=== PATIENT | female | born 1945 | race Caucasian/White ===

== ENCOUNTER 2021-04-19 15:01 | Inpatient (IN) ==
[2021-04-19] MEDS ORDERED: Ondansetron 4 MG/2 ML VIAL IVP PRN (23:01)
[2021-04-19] MEDS ORDERED: Naloxone 0.4 MG/ML INJ IVP PRN (23:01)
[2021-04-19] MEDS ORDERED: Ipratropium/Albuterol Neb 3 ML IH PRN (23:04)
[2021-04-20] MEDS ORDERED: Isovue-370 500 ML BOTTLE IVP ONE ×2 (00:08→14:00)
[2021-04-20] MEDS ORDERED: Perflutren Lipid Microsphere 1.3 ML in 0.9 % Sodium Chloride 8.7 ML IVP PRN (00:12)
[2021-04-20] MEDS: Nystatin SUSP 5 ML UD.LIQ PO SCH ×6 (01:50→20:34)
[2021-04-20 02:25] LABS: Adenovirus Not Detected (Not Detect); Bordetella Pertussis Not Detected (Not Detect); Chlamydophila pneumoniae Not Detected (Not Detect); Coronavirus 229E Not Detected (Not Detect); Coronavirus HKU1 Not Detected (Not Detect); Coronavirus NL63 Not Detected (Not Detect); Coronavirus OC43 Not Detected (Not Detect); Human Metapneumovirus Not Detected (Not Detect); Human Rhinovirus/Enterovirus Not Detected (Not Detect); Influenza A Subtype 2009 H1 Not Detected (Not Detect); Influenza B Not Detected (Not Detect); Mycoplasma pneumoniae Not Detected (Not Detect); Parainfluenza Virus 1 Not Detected (Not Detect); Parainfluenza Virus 2 Not Detected (Not Detect); Parainfluenza Virus 3 Not Detected (Not Detect); Parainfluenza Virus 4 Not Detected (Not Detect); Respiratory Syncytial Virus Not Detected (Not Detect); SARS-CoV-2 Not Detected (Not Detect)
[2021-04-20 03:20] LABS: Iron 19 mcg/dL (50-170)
[2021-04-20 03:21] LABS: Calcium 8.5 mg/dL (8.6-10.3); Magnesium 1.9 mg/dL (1.6-2.6); Potassium 4.8 mEq/L (3.5-5.1)
[2021-04-20 03:35] LABS: Thyroid Stimulating Hormone 1.41 mcIU/mL (0.340-5.600)
[2021-04-20 03:39] LABS: Ferritin 545 ng/mL (10-120)
[2021-04-20 03:40] LABS: Bilirubin,Urine Negative (Negative); Blood,Urine Negative (Negative); Clarity,Urine Clear (Clear); Color,Urine Light-Yellow (Yellow); Glucose,Urine (UA) Normal (Normal); Ketones,Urine Negative (Negative); Leukocyte Esterase,Urine Negative (Negative); Nitrite,Urine Negative (Negative); PH,Urine 5.5 pH Units (5.0-8.0); Protein,Urine Trace mg/dL (Neg-Trace); Specific Gravity,Urine 1.011 (1.010-1.025); Urobilinogen,Urine Normal (Normal)
[2021-04-20 03:51] LABS: INR 1.4; Prothrombin Time 15.1 Seconds (9.4-12.1)
[2021-04-20 04:18] LABS: Hematocrit 26.8 % (35.3-44.9); Hemoglobin 8.7 g/dL (11.5-15.4); Mean Corpuscular HGB Conc 32.5 g/dL (31.6-35.5); Mean Corpuscular Hemoglobin 29.1 pg (28.0-33.3); Mean Corpuscular Volume 89.6 fL (83.0-100.0); Mean Platelet Volume 9.4 fL (9.4-12.4); Platelet Count 260 K/mcL (140-400); Red Blood Count 2.99 M/mcL (3.82-4.97); Red Cell Distribution Width 14.6 % (11.5-14.5)
[2021-04-20 04:20] LABS: White Blood Count 39.7 K/mcL (4.3-11.1)
[2021-04-20 05:24] LABS: Lymphocytes # 0.8 K/mcL (0.6-4.6); Monocytes # 1.6 K/mcL (0.0-1.3); Neutrophils # 36.5 K/mcL (1.6-8.9)
[2021-04-20 05:25] LABS: Platelet Estimate Normal (Normal)
[2021-04-20] MEDS ORDERED: Pantoprazole 40 MG VIAL IVP SCH (09:00)
[2021-04-20] MEDS ORDERED: levoFLOXacin 750 MG/150 ML 750 MG/150 ML BAG IVPB SCH (09:00)
[2021-04-20] MEDS: Azithromycin 500 MG in 0.9 % Sodium Chloride 250 ML IVPB SCH (10:30)
[2021-04-20] MEDS ORDERED: valACYclovir 500 MG TABLET PO SCH (15:00)
[2021-04-20] MEDS: Cefepime HCl 2,000 MG in Water for inj. (sterile) 20 ML IVP SCH (15:54)
[2021-04-20] MEDS ORDERED: Cefepime HCl 2,000 MG in Water for inj. (sterile) 20 ML IVP SCH (16:00)
[2021-04-20] MEDS: valACYclovir 500 MG TABLET PO SCH (17:34)
[2021-04-20 19:08] LABS: Albumin 2.2 g/dL (3.5-5.7); Albumin/Globulin Ratio 0.5 (1.1-2.2); Bilirubin,Direct 0.1 mg/dL (0.0-0.2); Bilirubin,Indirect 0.4 mg/dL (0.0-1.0); Bilirubin,Total 0.5 mg/dL (0.3-1.0); Globulin 4.3 g/dL (2.4-3.5); Total Protein 6.5 g/dL (6.4-8.9)
[2021-04-20 19:10] LABS: Uric Acid 5.3 mg/dL (2.3-7.6)
[2021-04-21] MEDS: Famotidine 20 MG TABLET PO SCH (06:07)
[2021-04-21] MEDS: Cefepime HCl 2,000 MG in Water for inj. (sterile) 20 ML IVP SCH ×2 (06:36→18:01)
[2021-04-21] MEDS: Azithromycin 500 MG in 0.9 % Sodium Chloride 250 ML IVPB SCH (09:40)
[2021-04-21] MEDS: Nystatin SUSP 5 ML UD.LIQ PO SCH ×4 (09:41→21:11)
[2021-04-21] MEDS ORDERED: Lidocaine HCL 4 ML Topical Solution (Laryng-O-Jet Kit Sterile Pak) TP ONE (10:35)
[2021-04-21] MEDS ORDERED: *HR* Rocuronium Bromide 50 MG/5 ML VIAL ONE (10:37)
[2021-04-21] MEDS ORDERED: *HR* Succinylcholine 200 MG/10 ML VIAL IVP ONE (10:37)
[2021-04-21 10:57] LABS: Hematocrit 26.1 % (35.3-44.9); Hemoglobin 8.3 g/dL (11.5-15.4); Mean Corpuscular HGB Conc 31.8 g/dL (31.6-35.5); Mean Corpuscular Hemoglobin 28.5 pg (28.0-33.3); Mean Corpuscular Volume 89.7 fL (83.0-100.0); Mean Platelet Volume 9.4 fL (9.4-12.4); Platelet Count 300 K/mcL (140-400); Red Blood Count 2.91 M/mcL (3.82-4.97); Red Cell Distribution Width 14.8 % (11.5-14.5)
[2021-04-21 11:09] LABS: White Blood Count 40.8 K/mcL (4.3-11.1)
[2021-04-21 11:14] LABS: BUN/Creatinine Ratio 28 (6-26); Blood Urea Nitrogen 27 mg/dL (8-23); Calcium 8.9 mg/dL (8.6-10.3); Carbon Dioxide 26 mEq/L (23-29); Chloride 104 mEq/L (98-107); Glucose 115 mg/dL (70-105); Osmolality,Calculated 286 (280-300); Potassium 4.6 mEq/L (3.5-5.1); Sodium 135 mEq/L (136-145); eGFR For African Americans > 60 (> 60); eGFR For Non-African Americans 56 (> 60)
[2021-04-21 11:18] LABS: Hypersegmented Neutrophils Present (Not Present); Lymphocytes # 3.7 K/mcL (0.6-4.6); Monocytes # 1.6 K/mcL (0.0-1.3); Neutrophils # 35.5 K/mcL (1.6-8.9)
[2021-04-21 11:19] LABS: Platelet Estimate Normal (Normal)
[2021-04-21] MEDS ORDERED: EPHEDrine 50 MG/ML VIAL ONE (11:21)
[2021-04-21] MEDS ORDERED: Lidocaine -MPF 2% 2 ML VIAL ONE ×2 (11:27)
[2021-04-21] MEDS ORDERED: *HR* EPINEPHrine 1 MG/10 ML SYRINGE INTRATRACH PRN (11:45)
[2021-04-21] MEDS ORDERED: Sugammadex Sodium 200 MG/2 ML VIAL IV ONE (11:48)
[2021-04-21] MEDS: valACYclovir 500 MG TABLET PO SCH ×2 (13:41→21:11)
[2021-04-21 15:58] LABS: Source of Body Fluid LLL
[2021-04-21 16:18] LABS: Appearance of Body Fluid Clear (Clear); Volume of Body Fluid 16 mL
[2021-04-21 16:43] LABS: Appearance of Body Fluid Clear (Clear); Volume of Body Fluid 15 mL
[2021-04-21] MEDS ORDERED: Furosemide 40 MG/4 ML VIAL IVP ONE (18:58)
[2021-04-21] MEDS ORDERED: *HR* LORazepam 2 MG/ML VIAL IVP ONE (19:13)
[2021-04-21 20:01] LABS: BUN/Creatinine Ratio 27 (6-26); Blood Urea Nitrogen 26 mg/dL (8-23); Calcium 8.6 mg/dL (8.6-10.3); Carbon Dioxide 20 mEq/L (23-29); Chloride 102 mEq/L (98-107); Glucose 213 mg/dL (70-105); Osmolality,Calculated 283 (280-300); Potassium 4.3 mEq/L (3.5-5.1); Sodium 131 mEq/L (136-145); eGFR For African Americans > 60 (> 60); eGFR For Non-African Americans 57 (> 60)
[2021-04-21 20:02] LABS: Troponin I 0.03 ng/mL (< 0.04)
[2021-04-21 20:14] LABS: ABG Base Excess -2 mEq/L (-2 to 3); ABG HCO3 21 mEq/L (21-27); ABG Oxygen Saturation 90 % (95-98); ABG PCO2 31 mmHg (35-45); ABG PH 7.44 pH Units (7.32-7.45); ABG PO2 55 mmHg (85-104); ABG TCO2 22 mEq/L (20-26)
[2021-04-21] MEDS: MethylPREDNISolone 40 MG/ML VIAL IVP SCH (20:15)
[2021-04-22 05:13] LABS: Hematocrit 25.2 % (35.3-44.9); Red Cell Distribution Width 14.7 % (11.5-14.5)
[2021-04-22 05:14] LABS: Hemoglobin 7.9 g/dL (11.5-15.4); Mean Corpuscular HGB Conc 31.3 g/dL (31.6-35.5); Mean Corpuscular Hemoglobin 27.9 pg (28.0-33.3); Mean Platelet Volume 8.7 fL (9.4-12.4); Platelet Count 274 K/mcL (140-400); Red Blood Count 2.83 M/mcL (3.82-4.97)
[2021-04-22 05:27] LABS: BUN/Creatinine Ratio 30 (6-26); Blood Urea Nitrogen 29 mg/dL (8-23); Calcium 8.7 mg/dL (8.6-10.3); Carbon Dioxide 25 mEq/L (23-29); Chloride 102 mEq/L (98-107); Glucose 228 mg/dL (70-105); Osmolality,Calculated 289 (280-300); Potassium 4.4 mEq/L (3.5-5.1); Sodium 133 mEq/L (136-145); eGFR For African Americans > 60 (> 60); eGFR For Non-African Americans 56 (> 60)
[2021-04-22 05:28] LABS: White Blood Count 34.1 K/mcL (4.3-11.1)
[2021-04-22] MEDS: Famotidine 20 MG TABLET PO SCH (10:04)
[2021-04-22] MEDS: valACYclovir 500 MG TABLET PO SCH ×2 (10:05→20:49)
[2021-04-22] MEDS: Cefepime HCl 2,000 MG in Water for inj. (sterile) 20 ML IVP SCH ×2 (10:05→17:23)
[2021-04-22] MEDS: Azithromycin 500 MG in 0.9 % Sodium Chloride 250 ML IVPB SCH (10:06)
[2021-04-22] MEDS: Nystatin SUSP 5 ML UD.LIQ PO SCH ×4 (10:07→20:48)
[2021-04-22] MEDS: MethylPREDNISolone 40 MG/ML VIAL IVP SCH ×2 (10:19→20:54)
[2021-04-22] MEDS: Furosemide 40 MG TABLET PO SCH (10:19)
[2021-04-22] MEDS: *HR* Heparin 5,000 UNIT/ML VIAL SQ SCH ×2 (17:22→20:54)
[2021-04-23] MEDS: Cefepime HCl 2,000 MG in Water for inj. (sterile) 20 ML IVP SCH ×2 (03:15→16:29)
[2021-04-23] MEDS: Acetaminophen 325 MG TABLET PO PRN ×2 (03:18→09:21)
[2021-04-23 03:45] LABS: Hematocrit 23.7 % (35.3-44.9); Hemoglobin 7.4 g/dL (11.5-15.4); Mean Corpuscular HGB Conc 31.2 g/dL (31.6-35.5); Mean Corpuscular Hemoglobin 27.8 pg (28.0-33.3); Mean Corpuscular Volume 89.1 fL (83.0-100.0); Mean Platelet Volume 8.8 fL (9.4-12.4); Platelet Count 280 K/mcL (140-400); Red Blood Count 2.66 M/mcL (3.82-4.97); Red Cell Distribution Width 14.7 % (11.5-14.5); White Blood Count 28.2 K/mcL (4.3-11.1)
[2021-04-23 04:00] LABS: BUN/Creatinine Ratio 38 (6-26); Blood Urea Nitrogen 37 mg/dL (8-23); Calcium 8.6 mg/dL (8.6-10.3); Carbon Dioxide 26 mEq/L (23-29); Chloride 101 mEq/L (98-107); Glucose 218 mg/dL (70-105); Osmolality,Calculated 287 (280-300); Potassium 3.9 mEq/L (3.5-5.1); Sodium 131 mEq/L (136-145); eGFR For African Americans > 60 (> 60); eGFR For Non-African Americans 56 (> 60)
[2021-04-23] MEDS: *HR* Heparin 5,000 UNIT/ML VIAL SQ SCH ×3 (05:59→19:55)
[2021-04-23] MEDS: Famotidine 20 MG TABLET PO SCH (05:59)
[2021-04-23] MEDS: MethylPREDNISolone 40 MG/ML VIAL IVP SCH ×2 (07:28→09:16)
[2021-04-23] MEDS: Azithromycin 500 MG in 0.9 % Sodium Chloride 250 ML IVPB SCH (09:03)
[2021-04-23] MEDS: Nystatin SUSP 5 ML UD.LIQ PO SCH ×4 (09:03→19:54)
[2021-04-23] MEDS: valACYclovir 500 MG TABLET PO SCH ×2 (09:03→19:54)
[2021-04-23] MEDS: Furosemide 40 MG TABLET PO SCH (09:03)
[2021-04-23 14:15] LABS: A.galactomannan Ag Index 0.06
[2021-04-23 16:09] LABS: Influenza A PCR Body Fluid NOT DETECTED; Influenza B PCR Body Fluid NOT DETECTED; RVP Body Fluid Source BAL
[2021-04-23 16:10] LABS: Influenza A PCR Body Fluid NOT DETECTED; Influenza B PCR Body Fluid NOT DETECTED; RVP Body Fluid Source BAL
[2021-04-23] MEDS ORDERED: predniSONE 20 MG TABLET PO SCH (17:00)
[2021-04-23] MEDS: levoFLOXacin 750 MG/150 ML 750 MG/150 ML BAG IVPB SCH (17:59)
[2021-04-23 19:07] LABS: HSV 1 DNA DETECTED (Not Detect); HSV 2 DNA Not Detected (Not Detect); HSV Source MOUTH
[2021-04-24] MEDS: Famotidine 20 MG TABLET PO SCH (05:18)
[2021-04-24] MEDS: *HR* Heparin 5,000 UNIT/ML VIAL SQ SCH ×3 (05:18→23:16)
[2021-04-24 06:31] LABS: Hemoglobin 7.8 g/dL (11.5-15.4); Mean Corpuscular HGB Conc 31.2 g/dL (31.6-35.5); Mean Corpuscular Hemoglobin 27.9 pg (28.0-33.3); Mean Corpuscular Volume 89.3 fL (83.0-100.0); Mean Platelet Volume 9.2 fL (9.4-12.4); Platelet Count 316 K/mcL (140-400); Red Cell Distribution Width 14.5 % (11.5-14.5)
[2021-04-24 06:32] LABS: White Blood Count 32.8 K/mcL (4.3-11.1)
[2021-04-24 06:58] LABS: BUN/Creatinine Ratio 43 (6-26); Blood Urea Nitrogen 40 mg/dL (8-23); Calcium 8.9 mg/dL (8.6-10.3); Carbon Dioxide 25 mEq/L (23-29); Chloride 101 mEq/L (98-107); Glucose 117 mg/dL (70-105); Osmolality,Calculated 285 (280-300); Potassium 3.7 mEq/L (3.5-5.1); Sodium 132 mEq/L (136-145); eGFR For African Americans > 60 (> 60); eGFR For Non-African Americans 59 (> 60)
[2021-04-24] MEDS: Furosemide 40 MG TABLET PO SCH (07:30)
[2021-04-24] MEDS: valACYclovir 500 MG TABLET PO SCH ×3 (07:30→23:17)
[2021-04-24] MEDS: predniSONE 20 MG TABLET PO SCH ×2 (07:31→07:42)
[2021-04-24] MEDS: Nystatin SUSP 5 ML UD.LIQ PO SCH ×4 (07:31→23:16)
[2021-04-24 09:50] LABS: ANA IgG by ELISA DETECTED (None Detected)
[2021-04-24 09:51] LABS: RSV PCR Body Fluid NOT DETECTED
[2021-04-24 09:51] LABS: RSV PCR Body Fluid NOT DETECTED
[2021-04-24] MEDS: Magic Mouthwash 10 ML UD Cup PO SCH (17:04)
[2021-04-25 02:48] LABS: % Iron Saturation 5 % (15-50); Transferrin 130 mg/dL (203-362)
[2021-04-25 04:30] LABS: Basophils # 0.1 K/mcL (0.0-0.2); Basophils % 0.2 %; Eosinophils # 0.1 K/mcL (0.0-0.6); Eosinophils % 0.4 %; Hematocrit 24.4 % (35.3-44.9); Hemoglobin 7.6 g/dL (11.5-15.4); Immature Granulocytes % 2.2 % (0-4); Lymphocytes # 4.7 K/mcL (0.6-4.6); Lymphocytes % 21.3 %; Mean Corpuscular HGB Conc 31.1 g/dL (31.6-35.5); Mean Corpuscular Hemoglobin 27.9 pg (28.0-33.3); Mean Corpuscular Volume 89.7 fL (83.0-100.0); Mean Platelet Volume 8.8 fL (9.4-12.4); Monocytes # 1.3 K/mcL (0.0-1.3); Monocytes % 5.8 %; Neutrophils # 15.6 K/mcL (1.6-8.9); Platelet Count 277 K/mcL (140-400); Red Blood Count 2.72 M/mcL (3.82-4.97); Red Cell Distribution Width 14.6 % (11.5-14.5); Segmented Neutrophils % 70.1 %; White Blood Count 22.2 K/mcL (4.3-11.1)
[2021-04-25 04:51] LABS: BUN/Creatinine Ratio 43 (6-26); Blood Urea Nitrogen 32 mg/dL (8-23); Calcium 7.2 mg/dL (8.6-10.3); Carbon Dioxide 23 mEq/L (23-29); Chloride 106 mEq/L (98-107); Glucose 146 mg/dL (70-105); Osmolality,Calculated 288 (280-300); Potassium 3.1 mEq/L (3.5-5.1); Sodium 134 mEq/L (136-145); eGFR For African Americans > 60 (> 60); eGFR For Non-African Americans > 60 (> 60)
[2021-04-25] MEDS: *HR* Heparin 5,000 UNIT/ML VIAL SQ SCH ×3 (06:14→20:14)
[2021-04-25] MEDS: Famotidine 20 MG TABLET PO SCH (06:15)
[2021-04-25] MEDS ORDERED: Potassium Chloride 40 MEQ, Lidocaine 1% 2 ML in 0.9 % Sodium Chloride 500 ML IVPB ONE (08:16)
[2021-04-25] MEDS: predniSONE 20 MG TABLET PO SCH (09:59)
[2021-04-25] MEDS: Furosemide 40 MG TABLET PO SCH (09:59)
[2021-04-25] MEDS: Magic Mouthwash 10 ML UD Cup PO SCH ×3 (09:59→17:19)
[2021-04-25] MEDS: Nystatin SUSP 5 ML UD.LIQ PO SCH ×4 (09:59→20:14)
[2021-04-25] MEDS: valACYclovir 500 MG TABLET PO SCH ×2 (09:59→20:14)
[2021-04-25] MEDS: levoFLOXacin 750 MG/150 ML 750 MG/150 ML BAG IVPB SCH (17:19)
[2021-04-26] MEDS: *HR* Heparin 5,000 UNIT/ML VIAL SQ SCH ×3 (05:42→20:26)
[2021-04-26] MEDS: Famotidine 20 MG TABLET PO SCH (05:42)
[2021-04-26 06:01] LABS: Basophils % 0.1 %; Hematocrit 23.6 % (35.3-44.9); Hemoglobin 7.6 g/dL (11.5-15.4); Lymphocytes # 2.7 K/mcL (0.6-4.6); Lymphocytes % 12.6 %; Mean Corpuscular HGB Conc 32.2 g/dL (31.6-35.5); Mean Corpuscular Hemoglobin 28.7 pg (28.0-33.3); Mean Corpuscular Volume 89.1 fL (83.0-100.0); Monocytes # 0.9 K/mcL (0.0-1.3); Monocytes % 4.3 %; Neutrophils # 17.3 K/mcL (1.6-8.9); Platelet Count 279 K/mcL (140-400); Red Blood Count 2.65 M/mcL (3.82-4.97); Red Cell Distribution Width 14.2 % (11.5-14.5); White Blood Count 21.7 K/mcL (4.3-11.1)
[2021-04-26 06:57] LABS: BUN/Creatinine Ratio 36 (6-26); Blood Urea Nitrogen 35 mg/dL (8-23); Calcium 8.6 mg/dL (8.6-10.3); Carbon Dioxide 27 mEq/L (23-29); Chloride 100 mEq/L (98-107); Glucose 187 mg/dL (70-105); Osmolality,Calculated 287 (280-300); Potassium 4.1 mEq/L (3.5-5.1); Sodium 132 mEq/L (136-145); eGFR For African Americans > 60 (> 60); eGFR For Non-African Americans 56 (> 60)
[2021-04-26] MEDS: valACYclovir 500 MG TABLET PO SCH (09:11)
[2021-04-26] MEDS: Magic Mouthwash 10 ML UD Cup PO SCH ×3 (09:11→15:26)
[2021-04-26] MEDS: predniSONE 20 MG TABLET PO SCH (09:11)
[2021-04-26] MEDS: Furosemide 40 MG TABLET PO SCH (09:11)
[2021-04-26] MEDS: Nystatin SUSP 5 ML UD.LIQ PO SCH ×4 (09:11→20:26)
[2021-04-27 00:44] LABS: ANA HEp-2 IgG IFA DETECTED (<1:80); Anti Nuclear Ab Pattern SPECKLED
[2021-04-27] MEDS: Famotidine 20 MG TABLET PO SCH (06:08)
[2021-04-27] MEDS: Magic Mouthwash 10 ML UD Cup PO SCH ×3 (06:08→17:08)
[2021-04-27] MEDS: *HR* Heparin 5,000 UNIT/ML VIAL SQ SCH ×3 (06:08→21:42)
[2021-04-27 06:52] LABS: Hemoglobin 7.7 g/dL (11.5-15.4); Mean Platelet Volume 9.4 fL (9.4-12.4); Red Cell Distribution Width 14.6 % (11.5-14.5)
[2021-04-27 07:02] LABS: BUN/Creatinine Ratio 37 (6-26); Blood Urea Nitrogen 37 mg/dL (8-23); Calcium 8.9 mg/dL (8.6-10.3); Carbon Dioxide 28 mEq/L (23-29); Chloride 99 mEq/L (98-107); Glucose 170 mg/dL (70-105); Osmolality,Calculated 289 (280-300); Potassium 3.6 mEq/L (3.5-5.1); Sodium 133 mEq/L (136-145); eGFR For African Americans > 60 (> 60); eGFR For Non-African Americans 54 (> 60)
[2021-04-27 07:06] LABS: Hematocrit 24.6 % (35.3-44.9); Mean Corpuscular HGB Conc 31.3 g/dL (31.6-35.5); Mean Corpuscular Hemoglobin 28.1 pg (28.0-33.3); Mean Corpuscular Volume 89.8 fL (83.0-100.0); Platelet Count 301 K/mcL (140-400); Red Blood Count 2.74 M/mcL (3.82-4.97); White Blood Count 29.3 K/mcL (4.3-11.1)
[2021-04-27 08:28] LABS: Hypersegmented Neutrophils Present (Not Present); Lymphocytes # 2.9 K/mcL (0.6-4.6); Monocytes # 0.3 K/mcL (0.0-1.3); Neutrophils # 26.1 K/mcL (1.6-8.9); Platelet Estimate Normal (Normal); Reactive Lymphocytes Present (Not Present); Stomatocytes 1+ (Not Present)
[2021-04-27] MEDS: Nystatin SUSP 5 ML UD.LIQ PO SCH ×4 (09:08→21:42)
[2021-04-27] MEDS: Furosemide 40 MG TABLET PO SCH (09:09)
[2021-04-27] MEDS: predniSONE 20 MG TABLET PO SCH ×2 (09:09→11:00)
[2021-04-27] MEDS: valACYclovir 500 MG TABLET PO SCH (09:10)
[2021-04-27 15:01] LABS: Cytoplasmic Pattern SPECKLED; T. vulgaris 1 Ab Precipitin DETECTED (None Detected)
[2021-04-27] MEDS: levoFLOXacin 750 MG/150 ML 750 MG/150 ML BAG IVPB SCH (17:08)
[2021-04-28 04:03] LABS: BCR-ABL1 Specimen Source NOT SPECIFIED
[2021-04-28] MEDS: *HR* Heparin 5,000 UNIT/ML VIAL SQ SCH ×3 (06:21→20:21)
[2021-04-28] MEDS: Famotidine 20 MG TABLET PO SCH (06:22)
[2021-04-28 07:12] LABS: Basophils # 0.1 K/mcL (0.0-0.2); Basophils % 0.3 %; Eosinophils # 0.1 K/mcL (0.0-0.6); Eosinophils % 0.2 %; Hematocrit 25.5 % (35.3-44.9); Hemoglobin 7.7 g/dL (11.5-15.4); Immature Granulocytes % 3.2 % (0-4); Lymphocytes # 4.9 K/mcL (0.6-4.6); Lymphocytes % 20.2 %; Mean Corpuscular HGB Conc 30.2 g/dL (31.6-35.5); Mean Corpuscular Hemoglobin 28.5 pg (28.0-33.3); Mean Corpuscular Volume 94.4 fL (83.0-100.0); Mean Platelet Volume 9.3 fL (9.4-12.4); Monocytes # 1.2 K/mcL (0.0-1.3); Monocytes % 5.1 %; Neutrophils # 17.2 K/mcL (1.6-8.9); Platelet Count 254 K/mcL (140-400); Red Cell Distribution Width 15.2 % (11.5-14.5); White Blood Count 24.2 K/mcL (4.3-11.1)
[2021-04-28 07:21] LABS: BUN/Creatinine Ratio 35 (6-26); Blood Urea Nitrogen 36 mg/dL (8-23); Calcium 8.9 mg/dL (8.6-10.3); Carbon Dioxide 28 mEq/L (23-29); Chloride 99 mEq/L (98-107); Glucose 145 mg/dL (70-105); Osmolality,Calculated 289 (280-300); Potassium 3.5 mEq/L (3.5-5.1); Sodium 134 mEq/L (136-145); eGFR For African Americans > 60 (> 60); eGFR For Non-African Americans 53 (> 60)
[2021-04-28] MEDS: predniSONE 20 MG TABLET PO SCH (09:43)
[2021-04-28] MEDS: Magic Mouthwash 10 ML UD Cup PO SCH ×3 (09:43→17:29)
[2021-04-28] MEDS: Furosemide 40 MG TABLET PO SCH (09:43)
[2021-04-28] MEDS: valACYclovir 500 MG TABLET PO SCH (09:43)
[2021-04-28] MEDS: Nystatin SUSP 5 ML UD.LIQ PO SCH ×4 (09:43→20:21)
[2021-04-29 04:27] LABS: Basophils % 0.2 %
[2021-04-29 04:29] LABS: Basophils # 0.1 K/mcL (0.0-0.2); Eosinophils % 0.1 %; Hematocrit 24.4 % (35.3-44.9); Hemoglobin 7.7 g/dL (11.5-15.4); Immature Granulocytes % 3.3 % (0-4); Lymphocytes # 4.1 K/mcL (0.6-4.6); Lymphocytes % 15.9 %; Mean Corpuscular HGB Conc 31.6 g/dL (31.6-35.5); Mean Corpuscular Hemoglobin 28.3 pg (28.0-33.3); Mean Corpuscular Volume 89.7 fL (83.0-100.0); Monocytes # 1.4 K/mcL (0.0-1.3); Monocytes % 5.6 %; Neutrophils # 19.1 K/mcL (1.6-8.9); Nucleated Red Blood Cells 0.1 /100 WBC (0); Platelet Count 283 K/mcL (140-400); Red Blood Count 2.72 M/mcL (3.82-4.97); Red Cell Distribution Width 15.7 % (11.5-14.5); Segmented Neutrophils % 74.9 %; White Blood Count 25.5 K/mcL (4.3-11.1)
[2021-04-29 04:46] LABS: BUN/Creatinine Ratio 36 (6-26); Blood Urea Nitrogen 27 mg/dL (8-23); Calcium 7.1 mg/dL (8.6-10.3); Carbon Dioxide 23 mEq/L (23-29); Chloride 107 mEq/L (98-107); Glucose 162 mg/dL (70-105); Osmolality,Calculated 289 (280-300); Potassium 2.9 mEq/L (3.5-5.1); Sodium 135 mEq/L (136-145); eGFR For African Americans > 60 (> 60); eGFR For Non-African Americans > 60 (> 60)
[2021-04-29] MEDS: Famotidine 20 MG TABLET PO SCH (04:54)
[2021-04-29] MEDS: *HR* Heparin 5,000 UNIT/ML VIAL SQ SCH ×3 (04:54→22:25)
[2021-04-29] MEDS ORDERED: Potassium Chloride Elixir 20 MEQ/15 ML UDC PO ONE (07:20)
[2021-04-29] MEDS ORDERED: Potassium Chloride 40 MEQ, Lidocaine 1% 2 ML in 0.9 % Sodium Chloride 500 ML IVPB ONE (07:20)
[2021-04-29] MEDS: predniSONE 20 MG TABLET PO SCH (08:55)
[2021-04-29] MEDS: Nystatin SUSP 5 ML UD.LIQ PO SCH ×4 (08:55→22:25)
[2021-04-29] MEDS: Furosemide 40 MG TABLET PO SCH (08:56)
[2021-04-29] MEDS: Magic Mouthwash 10 ML UD Cup PO SCH ×3 (09:17→17:51)
[2021-04-29 13:58] LABS: JAK2 (V617F) SOURCE WHOLE BLOOD
[2021-04-29] MEDS: Acetaminophen 325 MG TABLET PO PRN (22:24)
[2021-04-30] MEDS ORDERED: *HR* Metoprolol 5 MG/5 ML VIAL IVP ONE ×2 (00:08→01:36)
[2021-04-30 03:16] LABS: Basophils % 0.2 %; Eosinophils % 0.1 %; Hemoglobin 8.7 g/dL (11.5-15.4); Lymphocytes % 14.5 %
[2021-04-30 03:17] LABS: Basophils # 0.1 K/mcL (0.0-0.2); Hematocrit 26.6 % (35.3-44.9); Immature Granulocytes % 2.8 % (0-4); Lymphocytes # 4.2 K/mcL (0.6-4.6); Mean Corpuscular HGB Conc 32.7 g/dL (31.6-35.5); Mean Corpuscular Hemoglobin 29.6 pg (28.0-33.3); Mean Corpuscular Volume 90.5 fL (83.0-100.0); Mean Platelet Volume 9.4 fL (9.4-12.4); Monocytes # 1.6 K/mcL (0.0-1.3); Monocytes % 5.4 %; Neutrophils # 22.3 K/mcL (1.6-8.9); Platelet Count 301 K/mcL (140-400); Red Blood Count 2.94 M/mcL (3.82-4.97); Red Cell Distribution Width 16.6 % (11.5-14.5)
[2021-04-30 03:40] LABS: BUN/Creatinine Ratio 33 (6-26); Blood Urea Nitrogen 32 mg/dL (8-23); Calcium 9.2 mg/dL (8.6-10.3); Carbon Dioxide 29 mEq/L (23-29); Chloride 97 mEq/L (98-107); Glucose 249 mg/dL (70-105); Osmolality,Calculated 289 (280-300); Potassium 4.8 mEq/L (3.5-5.1); Sodium 132 mEq/L (136-145); eGFR For African Americans > 60 (> 60); eGFR For Non-African Americans 55 (> 60)
[2021-04-30] MEDS: Famotidine 20 MG TABLET PO SCH (06:12)
[2021-04-30] MEDS: *HR* Heparin 5,000 UNIT/ML VIAL SQ SCH ×2 (06:13→13:10)
[2021-04-30 08:23] LABS: JAK2 (V617F) Mutation by PCR NOT DETECTED
[2021-04-30] MEDS: Nystatin SUSP 5 ML UD.LIQ PO SCH ×4 (10:38→20:55)
[2021-04-30] MEDS: Magic Mouthwash 10 ML UD Cup PO SCH ×3 (10:38→17:10)
[2021-04-30] MEDS: predniSONE 20 MG TABLET PO SCH (10:39)
[2021-04-30] MEDS: Furosemide 40 MG TABLET PO SCH (10:39)
[2021-04-30] MEDS: Apixaban 5 MG TABLET PO SCH (20:55)
[2021-05-01] MEDS: Famotidine 20 MG TABLET PO SCH (06:21)
[2021-05-01 06:51] LABS: Basophils # 0.1 K/mcL (0.0-0.2); Basophils % 0.3 %; Hematocrit 28.2 % (35.3-44.9); Hemoglobin 9.1 g/dL (11.5-15.4); Immature Granulocytes % 3.2 % (0-4); Lymphocytes # 2.5 K/mcL (0.6-4.6); Lymphocytes % 10.5 %; Mean Corpuscular HGB Conc 32.3 g/dL (31.6-35.5); Mean Corpuscular Hemoglobin 29.4 pg (28.0-33.3); Mean Corpuscular Volume 91.3 fL (83.0-100.0); Mean Platelet Volume 9.1 fL (9.4-12.4); Monocytes # 0.8 K/mcL (0.0-1.3); Monocytes % 3.2 %; Neutrophils # 19.9 K/mcL (1.6-8.9); Platelet Count 310 K/mcL (140-400); Red Blood Count 3.09 M/mcL (3.82-4.97); Red Cell Distribution Width 17.6 % (11.5-14.5); Segmented Neutrophils % 82.8 %
[2021-05-01 07:05] LABS: Calcium 9.4 mg/dL (8.6-10.3)
[2021-05-01] MEDS ORDERED: Furosemide 40 MG TABLET PO SCH (09:00)
[2021-05-01] MEDS: Magic Mouthwash 10 ML UD Cup PO SCH ×3 (11:11→18:47)
[2021-05-01] MEDS: Nystatin SUSP 5 ML UD.LIQ PO SCH ×4 (11:11→19:46)
[2021-05-01] MEDS: predniSONE 20 MG TABLET PO SCH (11:12)
[2021-05-01] MEDS: Apixaban 5 MG TABLET PO SCH ×2 (11:12→19:46)
[2021-05-01] MEDS: Acetaminophen 325 MG TABLET PO PRN (17:30)
[2021-05-02 01:33] LABS: Basophils # 0.1 K/mcL (0.0-0.2); Basophils % 0.2 %; Hematocrit 27.3 % (35.3-44.9); Hemoglobin 8.9 g/dL (11.5-15.4); Immature Granulocytes % 2.6 % (0-4); Lymphocytes # 2.2 K/mcL (0.6-4.6); Lymphocytes % 9.6 %; Mean Corpuscular HGB Conc 32.6 g/dL (31.6-35.5); Mean Corpuscular Hemoglobin 29.2 pg (28.0-33.3); Mean Corpuscular Volume 89.5 fL (83.0-100.0); Mean Platelet Volume 9.3 fL (9.4-12.4); Monocytes # 1.1 K/mcL (0.0-1.3); Monocytes % 4.8 %; Neutrophils # 18.7 K/mcL (1.6-8.9); Platelet Count 294 K/mcL (140-400); Red Blood Count 3.05 M/mcL (3.82-4.97); Red Cell Distribution Width 18.1 % (11.5-14.5); Segmented Neutrophils % 82.8 %; White Blood Count 22.6 K/mcL (4.3-11.1)
[2021-05-02 02:03] LABS: Calcium 9.3 mg/dL (8.6-10.3); Potassium 4.6 mEq/L (3.5-5.1)
[2021-05-02 05:38] VITALS: BP 147/38; PULSE 64; TEMP 97.5
[2021-05-02] MEDS: Famotidine 20 MG TABLET PO SCH (06:10)
[2021-05-02] MEDS: Magic Mouthwash 10 ML UD Cup PO SCH ×3 (07:59→16:21)
[2021-05-02] MEDS: Apixaban 5 MG TABLET PO SCH (07:59)
[2021-05-02] MEDS: predniSONE 20 MG TABLET PO SCH (08:00)
[2021-05-02] MEDS: Nystatin SUSP 5 ML UD.LIQ PO SCH ×2 (08:01→16:20)
[2021-05-02 14:39] VITALS: O2SAT 88
[2021-05-03 15:56] LABS: Estimated Average Glucose 126 mg/dl
== END 2021-05-02 17:32 | disposition home health service (06) | DRG 853 ==
LOC: 2NENU → OBSVTOIN 22:20 → SUATTDRO 22:20
PROVIDERS: ADMIT Family Medicine; ATTEND Internal Medicine
PROC: ENDOBRF (2021-04-21 09:35)